=== PATIENT | female | born 1985 | race Caucasian/White ===

== ENCOUNTER 2023-03-15 20:36 | Emergency (ER) | payer SELFPAY ==
[2023-03-15 20:51] VITALS: BP 126/74; PULSE 104; RESP 18; TEMP 36.4; O2SAT 100; BMI 30.1
--- NOTE | 2023-03-15 21:03 | ED.GENADUL1 ---
HPI - General Adult General Chief complaint: Allergic Reaction Stated complaint: ALLERGIC REACTION BEE STING Time Seen by Provider: 03/15/23 20:46 Source: patient Mode of arrival: walk-in History of Present Illness HPI narrative: 37-year-old female presents for a bee sting to her right upper arm. This was sustained about a week ago. She was doing well until the last twenty-four hours when she developed some swelling in that area. She saw her PCPs office today and they prescribed her Bactrim but the pharmacy closed before she had a chance to pick it up. No fever or tongue swelling or difficulty breathing or swallowing and no drainage. Her symptoms include some redness and swelling to the right upper arm.. Related Data Previous Rx's Medication Instructions Recorded prednisone 10 mg tablet See Rx Instructions .Route 03/15/23 .COMPLEX #30 tabs Allergies Allergy/AdvReac Type Severity Reaction Status Date / Time morphine AdvReac Intermediate Vomiting Verified 03/15/23 20:51 Review of Systems ROS Narrative A ten point review of systems is negative except as noted above. Exam Narrative Exam Narrative: Nurses note and vital signs reviewed and patient is not hypoxic. General: The patient appears well and in no apparent distress. Patient is resting comfortably on cart. Skin: Warm, dry, no pallor noted. There is an oval area of erythema to the right upper inner arm. She also has some erythema on her neck which she feels is due to stress. Head: Normocephalic, atraumatic Eye: Normal conjunctiva, no drainage Ears, Nose, Mouth, and Throat: oral mucosa is moist. Nares patent. Cardiovascular: Regular Rate and Rhythm Respiratory: Patient is in no distress, no accessory muscle use, lungs are clear to auscultation, no wheezing, rales or rhonchi Back: non-tender GI: Normal bowel sounds, no tenderness to palpation, no masses appreciated. No rebound, guarding, or rigidity noted. Musculoskeletal: The patient has no evidence of calf tenderness, no pitting edema, symmetrical pulses noted bilaterally Neurological: A&O, normal speech Psychiatric: Cooperative Constitutional Vital Signs, click to edit/add: Last Vital Signs Temp 97.6 F 03/15/23 20:51 Pulse 104 H 03/15/23 20:51 Resp 18 03/15/23 20:51 BP 126/74 03/15/23 20:51 Pulse Ox 100 03/15/23 20:51 O2 Del Method Room Air 03/15/23 20:51 Course Vital Signs Vital signs: Vital Signs Temperature 97.6 F 03/15/23 20:51 Pulse Rate 104 H 03/15/23 20:51 Respiratory Rate 18 03/15/23 20:51 Blood Pressure 126/74 03/15/23 20:51 Pulse Oximetry 100 03/15/23 20:51 Oxygen Delivery Method Room Air 03/15/23 20:51 Temperature 97.6 F 03/15/23 20:51 Pulse Rate 104 H 03/15/23 20:51 Respiratory Rate 18 03/15/23 20:51 Blood Pressure 126/74 03/15/23 20:51 Pulse Oximetry 100 03/15/23 20:51 Oxygen Delivery Method Room Air 03/15/23 20:51 Medical Decision Making MDM Narrative Medical decision making narrative: My clinical impression is that she has a localized reaction to a bee sting. 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 Treatment diagnosis and follow-up were discussed with the patient. Differential Diagnosis Differential Diagnosis: localized reaction, bee sting, cellulitis Discharge Plan Discharge Chief Complaint: Allergic Reaction Clinical Impression: Bee sting reaction Patient Disposition: Home, Self-Care Time of Disposition Decision: 21:02 Condition: Good Mode of Transportation: Private Vehicle Prescriptions / Home Meds: New prednisone 10 mg tablet See Rx Instructions .ROUTE .COMPLEX Qty: 30 0RF Rx Instructions: 4 by mouth daily for three days then 3 by mouth daily for three days then 2 by mouth daily for three days then 1 by mouth daily for three days Instructions: Insect Bite or Sting (ED) Stand Alone Forms: Portal Instructions Referrals: NICCI MASON [Primary Care Provider] - 1 week
[2023-03-15] MEDS: METHYLPREDNISOLONE SOD SUCC PF 125 MG/2 ML VIAL IM (21:16)
[2023-03-15] MEDS: SULFAMETHOXAZOLE/TRIMETHOPRIM 800-160 MG TABLET 1 TAB PO (21:17)
== END 2023-03-15 21:25 | disposition home or self-care (01) ==
PROVIDERS: Emergency Provider Emergency Medicine; PCP Family Medicine
DX: T63.441A Toxic effect of venom of bees, accidental (unintentional), initial encounter (principal)
CPT/HCPCS: 96372; 99284; J2930